=== PATIENT | male | born 1995 | race Caucasian/White ===

== ENCOUNTER 2024-03-11 22:18 | Emergency (ER) | payer OTHER ==
[~2024-03-11 22:18] MED LIST: LIDOCAINE PATCH REMOVAL MC SCH
[2024-03-11 22:23] VITALS: BP 132/80; PULSE 59; RESP 20; TEMP 98.4; BMI 29.9
[2024-03-11] MEDS ORDERED: ACETAMINOPHEN 500 MG TABLET (FP) ONE (23:10)
[2024-03-11] MEDS ORDERED: LIDOCAINE 4% PATCH TP ONE (23:11)
[2024-03-11] MEDS ORDERED: IBUPROFEN 400 MG TABLET (FP) PO ONE (23:11)
[2024-03-11] MEDS: IBUPROFEN 400 MG TABLET (FP) PO ONE (23:12)
[2024-03-11] MEDS: ACETAMINOPHEN 500 MG TABLET (FP) PO ONE (23:12)
[2024-03-11] MEDS: LIDOCAINE 4% PATCH TP ONE (23:13)
== END 2024-03-11 23:13 | disposition home or self-care (01) ==
LOC: JER 22:18
DX: M79.605 Pain in left leg (principal); W00.9XXA Unspecified fall due to ice and snow, initial encounter
CPT/HCPCS: 73590-TC-LT-FY; 99283-25